=== PATIENT | female | born 1945 | race Caucasian/White ===

== ENCOUNTER 2019-09-07 10:02 | Outpatient (CLI) | payer MEDICARE, BC | END 2019-09-07 23:59 | disposition home or self-care (01) | LOC: RAD 10:02 | PROVIDERS: ATTEND Internal Medicine Cardiovascular Disease | DX: M76.892 Other specified enthesopathies of left lower limb, excluding foot (principal); M79.89 Other specified soft tissue disorders; R60.9 Edema, unspecified | CPT/HCPCS: 73560-TC ==